=== PATIENT | female | born 1925 | race Caucasian/White ===

== ENCOUNTER 2016-05-11 14:40 | Inpatient (IN) | payer OTHER ==
[~2016-05-11] VITALS: Ht 162.6 cm; Wt 63.5 kg
[2016-05-11 14:40] VITALS: BP 148/78; PULSE 59; RESP 16; TEMP 98; O2SAT 96
[~2016-05-11 14:40] MED LIST: ALBU8.5H8 INH; ALPR0.2583 PO; BENA20TA2 PO; BUPR75TA8; FLUT16SP16 NS; IPRA4AER INH; ISOS30TA6 PO; LEVO75TA7 PO; NITR1PAT10 SL; WARF4TAB2 PO
--- NOTE | 2016-05-11 14:40 | NUR ---
Patient to ER bed 2 to gown for evaluation. Side rails up. Report given to jessica mercado.
--- NOTE | 2016-05-11 14:45 | NUR ---
ER at bedside examining patient.
[2016-05-11 15:20] LABS: BASOPHILS # (AUTO) 0.1 K/uL (0.0-0.2); BASOPHILS % (AUTO) 0.8 % (0.0-2.0); EOSINOPHILS # (AUTO) 0.2 K/uL (0.0-0.4); EOSINOPHILS % (AUTO) 2.6 % (0.0-4.0); HEMATOCRIT 34.3 % (36-48); HEMOGLOBIN 11.4 g/dL (12.0-16.0); LYMPHOCYTES % (AUTO) 13.9 % (20.5-51.5); MEAN CORPUSCULAR HEMOGLOBIN 32 pg (27-31); MEAN CORPUSCULAR HGB CONC 33 % (32-36); MEAN CORPUSCULAR VOLUME 96 fL (79.0-98.0); MONOCYTES # (AUTO) 0.5 K/uL (0.0-1.0); MONOCYTES % (AUTO) 6.9 % (1.7-9.3); NEUTROPHILS # (AUTO) 5.4 K/uL (1.8-7.7); NEUTROPHILS % (AUTO) 75.8 % (40.0-70.0); PLATELET COUNT (AUTO) 171 K/uL (130-430); RED BLOOD CELL COUNT(AUTO) 3.55 MIL/uL (4.2-6.2); RED CELL DISTRIBUTION WIDTH 13.3 % (9.0-15.0); WHITE BLOOD COUNT (AUTO) 7.2 K/uL (4.8-10.8)
[2016-05-11 15:29] LABS: ANION GAP 6 (5-15); CALCIUM 8.7 mg/dL (8.4-11.0); CHLORIDE 110 mmol/L (98-107); CREATININE 1.61 mg/dL (0.55-1.30); GLUCOSE 122 mg/dL (70-99); POTASSIUM 4.7 mmol/L (3.5-5.1); SODIUM SERUM 143 mmol/L (136-145); UREA NITROGEN, BLOOD 27 mg/dL (8-21)
[2016-05-11 15:40] LABS: PROTHROMBIN TIME 45.9 SECS (9.5-12.5)
[2016-05-11 15:42] LABS: TOTAL BILIRUBIN 0.7 mg/dL (0.0-1.0)
[2016-05-11 15:43] LABS: ALANINE AMINOTRANSFERASE 19 U/L (12-78); ALBUMIN 3.1 g/dL (3.4-4.8); ASPARTATE AMINOTRANSFERASE 19 U/L (10-37); CHOLESTEROL 188 mg/dL (<200); HDL CHOLESTEROL 48 mg/dL (>55); LDL CHOLESTEROL 109 mg/dL (<100); TRIGLYCERIDES 168 mg/dL (30-150)
--- NOTE | 2016-05-11 15:50 | NUR ---
CELSA ROMAN-DTR AT [phone]
--- NOTE | 2016-05-11 16:10 | NUR ---
SPOKE WITH DTR CELSA, STATES TO CALL HER WHEN PT IS READY FOR DISCHARGE. INFORMED THAT SHE WILL STAY IN HOSPITAL FOR OBSERVATION.
--- NOTE | 2016-05-11 16:29 | NUR ---
PT ON BEDPAN, ATTEMPTING TO URINATE ON COMMAND. REFSUES IN AND OUT CATH. IV FLUIDS INFUSING WELL.
[2016-05-11] MEDS ORDERED: NACL 0.9% 1,000 ML IV ONE (16:37)
--- NOTE | 2016-05-11 16:42 | NUR ---
Patient poor historian, states she takes warfarin, unable to tell me what other medications she is taking or the doses. dr feldman aware
--- NOTE | 2016-05-11 17:15 | NUR ---
Admission Note Received patient from ER with diagnosis of SYNCOPE/ DEHYDRATION . Initial Plan of Care discussed-patient verbalized understanding. . Oriented to room, call light, pain management and safety.will continue to monitor
[2016-05-11 17:37] VITALS: BP 160/80; PULSE 65; RESP 18; TEMP 97.3; O2SAT 97
--- NOTE | 2016-05-11 18:32 | NUR ---
ADMISSION PATIENT CAME FROM HOME, S/P FALL, PATIENT IS ALERT AND ORIENTED AND ABLE TO COMMUNICATE NEEDS TO STAFF BUT HAS MOMENTS OF FORGETFULNESS. PATIENT IS BEDSIDE AND IS EDUCATED NOT TO GET UP UNASSISTED, BED IS IN LOWEST POSITION, BED ALARM IS ON, FALL RISK BAND IS ON AND CALL LIGHT IS WITHIN REACH. DAUGHTER IS AT BEDSIDE AND DR RIGGINS CAME IN TO SEE THE PATIENT, A NEW ORDER TO STRAIGHT CATH WAS NOTED BUT PATIENT IS TRYING TO USE A BEDPAN RIGHT NOW. ADMISSION WAS COMPLETED AND BELONGING LIST WAS FINISHED. WILL GIVE REPORT TO NIGHT NURSE.
[2016-05-11] MEDS ORDERED: IPRATROPIUM/ALBUTEROL SULFATE 3 ML AMPUL.NEB INH PRN (18:45)
[2016-05-11 19:10] LABS: BILIRUBIN,URINE NEGATIVE (NEGATIVE); BLOOD, URINE 1+ (NEGATIVE); CLARITY/URINE CLEAR (CLEAR); COLOR,URINE AMBER (YELLOW); GLUCOSE,URINE TRACE (NEGATIVE); KETONES,URINE TRACE (NEGATIVE); LEUKOCYTE ESTERASE ,URINE NEGATIVE (NEGATIVE); NITRITE, URINE POSITIVE (NEGATIVE); PROTEIN URINE TRACE (NEGATIVE)
[2016-05-11 19:29] VITALS: BP 149/81; PULSE 71; RESP 16; TEMP 98.5; O2SAT 93
[2016-05-11 19:39] LABS: BACTERIA,URINE MANY /HPF (None Seen); MUCUS,URINE None Seen /LPF (None Seen)
--- NOTE | 2016-05-11 19:40 | NUR ---
initial nursing notes: Patient is awake. Patient has an IV access on the left AC. Patient has bruises on the left buttock, right arm and both legs. Encouraged patient to use call light when getting out of the bed. Patient demonstrated proper use of call light.
[2016-05-11] MEDS: ALPRAZolam 0.25 MG TABLET PO SCH (20:35)
--- NOTE | 2016-05-11 21:40 | NUR ---
nursing rounds: Patient used bedpan and voided tea-colored urine output.
[2016-05-11 22:49] VITALS: BP 149/81; PULSE 71
--- NOTE | 2016-05-11 23:40 | NUR ---
nursing rounds: Patient is asleep. Patient has no shortness of breath.
[2016-05-12 00:59] VITALS: BP 136/70; PULSE 60; RESP 18; TEMP 98; O2SAT 94
--- NOTE | 2016-05-12 00:59 | NUR ---
Consultation Paged Reason for consulation: Syncope Was consult called: Yes Person who was notified: Nicole Consulting Physician: Cirilo Asher Assistant Administrator Specialty: Cardio Assistant Administrator
--- NOTE | 2016-05-12 01:40 | NUR ---
nursing rounds: Patient calmly resting in bed. Patient has no respiratory distress.
--- NOTE | 2016-05-12 03:40 | NUR ---
nursing rounds: Patient is able to use bedside commode with assist.
[2016-05-12 05:14] VITALS: BP 146/84; PULSE 95; RESP 18; TEMP 98.6; O2SAT 95
--- NOTE | 2016-05-12 05:40 | NUR ---
nursing rounds: Patient calmly resting in bed. Call light within patient's reach.
[2016-05-12] MEDS: LEVOTHYROXINE SODIUM 0.075 MG TABLET PO SCH (06:15)
[2016-05-12 07:08] LABS: BASOPHILS # (AUTO) 0.1 K/uL (0.0-0.2); BASOPHILS % (AUTO) 1.2 % (0.0-2.0); EOSINOPHILS # (AUTO) 0.3 K/uL (0.0-0.4); EOSINOPHILS % (AUTO) 4.5 % (0.0-4.0); HEMATOCRIT 34.8 % (36-48); HEMOGLOBIN 11.9 g/dL (12.0-16.0); LYMPHOCYTES # (AUTO) 1.4 K/uL (1.0-5.5); LYMPHOCYTES % (AUTO) 24.9 % (20.5-51.5); MEAN CORPUSCULAR HEMOGLOBIN 33 pg (27-31); MEAN CORPUSCULAR HGB CONC 34 % (32-36); MEAN CORPUSCULAR VOLUME 96 fL (79.0-98.0); MONOCYTES # (AUTO) 0.6 K/uL (0.0-1.0); MONOCYTES % (AUTO) 10.7 % (1.7-9.3); NEUTROPHILS # (AUTO) 3.3 K/uL (1.8-7.7); NEUTROPHILS % (AUTO) 58.7 % (40.0-70.0); PLATELET COUNT (AUTO) 160 K/uL (130-430); RED BLOOD CELL COUNT(AUTO) 3.62 MIL/uL (4.2-6.2); RED CELL DISTRIBUTION WIDTH 13.4 % (9.0-15.0); WHITE BLOOD COUNT (AUTO) 5.7 K/uL (4.8-10.8)
--- NOTE | 2016-05-12 07:36 | NUR ---
Nutrition Update Grover Scale 18 noted. Pt admitted for syncope/dehydration. Diet: mechanical soft BMI: 24 kg/m2 RD to follow per nutrition care standards.
--- NOTE | 2016-05-12 07:46 | NUR ---
closing nursing notes: Patient is awake, alert and oriented X 4. Patient is in no acute respiratory distress. No episodes of fall and no injuries throughout the night guard. Provided nursing report to incoming morning shift nurse, FERNANDEZ Busby, at patient's bedside.
[2016-05-12 07:49] LABS: INR 4.3 (0.8-1.2); PROTHROMBIN TIME 49.1 SECS (9.5-12.5)
[2016-05-12 07:55] VITALS: BP 153/102; PULSE 71; RESP 18; TEMP 98.2; O2SAT 93
--- NOTE | 2016-05-12 07:55 | NUR ---
INITIAL ROUNDS Received pt AAOx4, anxious at times, no c/o light-headedness or dizziness, no c/o pain or discomfort. Plan of care for the day reviewed with pt-pt verbalized her understanding. Pain management, skin and safety discussed-teach back done. Side rails up x3, bed alarm on, room across from nursing station for safety. Contact phone number explained, Call light within reach.
[2016-05-12 08:11] LABS: ANION GAP 8 (5-15); CALCIUM 8.9 mg/dL (8.4-11.0); CHLORIDE 108 mmol/L (98-107); CREATININE 1.29 mg/dL (0.55-1.30); GLUCOSE 88 mg/dL (70-99); SODIUM SERUM 141 mmol/L (136-145); UREA NITROGEN, BLOOD 25 mg/dL (8-21)
[2016-05-12 08:25] LABS: TOTAL BILIRUBIN 0.8 mg/dL (0.0-1.0)
[2016-05-12 08:26] LABS: ALANINE AMINOTRANSFERASE 20 U/L (12-78); ALBUMIN 3.2 g/dL (3.4-4.8); ASPARTATE AMINOTRANSFERASE 23 U/L (10-37); TOTAL PROTEIN, SERUM 6.2 g/dL (6.4-8.3)
[2016-05-12] MEDS ORDERED: buPROPion HCL 75 MG TABLET PO SCH ×2 (09:00→21:00)
--- NOTE | 2016-05-12 09:12 | NUR ---
CALLED [facility], MEDICAL RECORD, RE: CTA CORNONARY, NO SUCH TEST WAS [place]E ONLY CTA OF CHEST. SPOKE TO DK
[2016-05-12] MEDS: ISOSORBIDE MONONITRATE 30 MG TAB.ER.24H PO SCH (09:38)
[2016-05-12] MEDS: BENAZEPRIL HCL 20 MG TABLET (LOTENSIN) PO SCH (09:39)
[2016-05-12] MEDS: ALPRAZolam 0.25 MG TABLET PO SCH ×3 (09:40→21:09)
--- NOTE | 2016-05-12 10:40 | NUR ---
ROUNDS Pt sitting up in bed visiting with her daughter. No s/s resp distress, no c/o dizziness or lightheadedness, no c/o pain or discomfort. Pt's daughter wanted me to inform doctor of medication Ranexa Er 1000 mg po BID that pt took yesterday that may have made pt faint-will inform MD. Needs met, call light within reach.
[2016-05-12] MEDS ORDERED: COMMUNICATION ORDER XX SCH (10:45)
[2016-05-12 12:33] VITALS: BP 139/78; PULSE 63; RESP 16; TEMP 97.3; O2SAT 96
--- NOTE | 2016-05-12 13:12 | NUR ---
ROUNDS Pt sitting up in bed eating her lunch, no c/o pain or discomfort, no c/o dizziness. Call light within reach.
[2016-05-12] MEDS ORDERED: cefTRIAXone 1 GM in D5W 50 ML IV ONE (14:15)
[2016-05-12] MEDS: CIPROFLOXACIN LACT 200 MG/D5W 100 ML IV SCH ×2 (16:31→21:09)
[2016-05-12 17:17] VITALS: BP 115/62; PULSE 67; RESP 16; TEMP 99.5; O2SAT 94
--- NOTE | 2016-05-12 18:08 | NUR ---
CLOSING ROUNDS Pt sitting up in bed eating dinner. No s/s resp distress, no c/o pain or discomfort, no c/o dizziness or lightheadedness. Pt tolerated antibiotics well. No c/o GI distress. Needs met, call light within reach.
--- NOTE | 2016-05-12 20:10 | NUR ---
Initial note A/O x 3, forgetful, no SOB, no chest pain, denied pain. Skin warm to touch, IV #20 at L AC. Patent and free of infection or infiltration. Bruise noted at L buttock and R arm, no skin breakdown. Clear lung sounds and active bowel sounds. Needed one person assistance for ambulation/transfer. High risk for fall, patient closed to nursing station, bed alarm on, bed at lowest position, call light within reach, will continue to monitor patient.
[2016-05-12 20:29] VITALS: BP 119/91; PULSE 76; RESP 18; TEMP 96.9; O2SAT 98
[2016-05-12] MEDS: LACTOBACILLUS RHAMNOSUS GG 1 CAP CAPSULE PO SCH (21:09)
--- NOTE | 2016-05-12 22:10 | NUR ---
Round A/O x 3, forgetful, no SOB, no chest pain, denied pain. Resting in bed. Skin warm to touch, IV #20 at L AC. Patent and free of infection or infiltration. Bruise noted at L buttock and R arm, no skin breakdown. Clear lung sounds and active bowel sounds. High risk for fall, patient closed to nursing station, bed alarm on, bed at lowest position, call light within reach, will continue to monitor patient.
[2016-05-13 00:20] VITALS: BP 121/64; PULSE 66; RESP 18; TEMP 96.5; O2SAT 95
--- NOTE | 2016-05-13 00:20 | NUR ---
Round A/O x 3, forgetful, no SOB, no chest pain, denied pain. Resting/sleeping in bed. Skin warm to touch, IV #20 at L AC. Patent and free of infection or infiltration. Bruise noted at L buttock and R arm, no skin breakdown. High risk for fall, patient closed to nursing station, bed alarm on, bed at lowest position, call light within reach, will continue to monitor patient.
--- NOTE | 2016-05-13 02:05 | NUR ---
Round A/O x 3, forgetful, no SOB, no chest pain, denied pain. Resting in bed. Skin warm to touch, IV #20 at L AC. Patent and free of infection or infiltration. High risk for fall, patient closed to nursing station, bed alarm on, bed at lowest position, call light within reach, will continue to monitor patient.
--- NOTE | 2016-05-13 03:40 | NUR ---
paged for Dr Du, dialed . s/w [facility].
[2016-05-13] MEDS ORDERED: NITROGLYCERIN 0.4 MG TAB.SUBL SL PRN (03:45)
--- NOTE | 2016-05-13 03:45 | NUR ---
Dr. Du called back and gave order for Nitrostat 0.4 mg SL Q5 min x 3 PRN for chest pain.
--- NOTE | 2016-05-13 04:20 | NUR ---
Round A/O x 3, forgetful, no SOB, was c/o chest pain, Nitrostat given SL. Patient stated feel better, no more pain. Resting in bed. Skin warm to touch, IV #20 at L AC. Patent and free of infection or infiltration. Assisted patient to BSC x 1 for urination, clear robyn urine noted. High risk for fall, patient closed to nursing station, bed alarm on, bed at lowest position, call light within reach, will continue to monitor patient.
[2016-05-13 04:39] VITALS: BP 120/50; PULSE 68; RESP 19; TEMP 97.7; O2SAT 94
[2016-05-13] MEDS: LEVOTHYROXINE SODIUM 0.075 MG TABLET PO SCH (06:08)
--- NOTE | 2016-05-13 06:20 | NUR ---
Closing note A/O x 3, forgetful, no SOB, no chest pain, denied pain. Skin warm to touch, IV #20 at L AC. Patent and free of infection or infiltration. Needed one person assisted for transfer and ambulation. High risk for fall, patient closed to nursing station, bed alarm on, bed at lowest position, call light within reach, will give report to incoming nurse.
[2016-05-13 07:41] LABS: INR 2.4 (0.8-1.2); PROTHROMBIN TIME 27.1 SECS (9.5-12.5)
[2016-05-13 08:00] VITALS: BP 126/75; PULSE 66; RESP 17; TEMP 98.5; O2SAT 97
--- NOTE | 2016-05-13 08:00 | NUR ---
INITIAL NOTES PT IN BED, AWAKE, ALERT AND ORIENTED. DENIES ANY PAIN OR DISCOMFORT.NO ACUTE DISTRESS NOTED. 0N ROOM AIR. DENIES ANY SHORTNESS OF BREATH. IVL. ENC. TO CALL FOR HELP AT ALL TIMES. ON BED ALARM. CALL LIGHT IN REACH. WILL MONITOR.
[2016-05-13] MEDS: BENAZEPRIL HCL 20 MG TABLET (LOTENSIN) PO SCH (08:43)
[2016-05-13] MEDS: ISOSORBIDE MONONITRATE 30 MG TAB.ER.24H PO SCH (08:43)
[2016-05-13] MEDS: LACTOBACILLUS RHAMNOSUS GG 1 CAP CAPSULE PO SCH (08:44)
[2016-05-13] MEDS: ALPRAZolam 0.25 MG TABLET PO SCH (08:44)
[2016-05-13] MEDS ORDERED: cefTRIAXone 1 GM in D5W 50 ML IV SCH (09:00)
--- NOTE | 2016-05-13 09:30 | NUR ---
walking with physical therapy at this time.
[2016-05-13] MEDS: CIPROFLOXACIN LACT 200 MG/D5W 100 ML IV SCH ×2 (10:00→11:02)
--- NOTE | 2016-05-13 10:30 | NUR ---
PT DRESSED UP AND WANTS TO GO HOME. PT REMOVED MONITOR AND DOES NOT WANT TO PUT IT BACK. DR. SULLIVAN WAS SEEN PT AND SAID TO PT THAT SHE CAN GO HOME. INFORMED PT TO WAIT FOR DR. RIGGINS AT THIS TIME. DOES NOT WANTS TO GO BACK TO BED AT THIS TIME. PT JUST WANTED TO SIT ON THE CHAIR. CALLED DAUGHTER AND SPOKE TO PT.
[2016-05-13 12:00] VITALS: BP 126/80; PULSE 95; RESP 18; TEMP 98.3; O2SAT 96
--- NOTE | 2016-05-13 12:00 | NUR ---
CALLED DR. RIGGINS THAT PT WANTS TO LEAVE AND SHE REFUSE THE CIPRO IV ABX. ROCEPHIN WAS GIVEN . DAUGHTER WILL COME AND WILL SUPERVISOR JEWEL[employer] DEPARTMENT PT. STATED TO PRINT LABS RESULT AND FOLLOW UP WITH HER PRIMARY CARE DOCTOR.
--- NOTE | 2016-05-13 12:30 | NUR ---
AMA DAUGHTER HERE AND UNABLE TO PERSUADE PT TO STAY. PT WANTS TO GO HOME AT THIS TIME. LABS RESULT AND IMAGING RESULTS PRINTED AND GIVEN TO PT AND FAMILY. INSTRUCTED PT TO FOLLOW UP WITH PRIMARY CARE DOCTOR AND URINE CULTURE STILL PENDING AT THIS TIME. AMA FORMED SIGNED BY PT.
[2016-05-13] MEDS ORDERED: WARFARIN SODIUM 2 MG TABLET PO SCH (18:00)
== END 2016-05-13 12:40 | disposition left against medical advice (07) | DRG 683 ==
LOC: SED 14:40 → STU 16:37
PROVIDERS: ADMIT Internal Medicine; ATTEND Internal Medicine
DX: N17.9 Acute kidney failure, unspecified (principal); N39.0 Urinary tract infection, site not specified; E86.0 Dehydration; I95.9 Hypotension, unspecified; E03.9 Hypothyroidism, unspecified; J44.9 Chronic obstructive pulmonary disease, unspecified; I25.10 Atherosclerotic heart disease of native coronary artery without angina pectoris; I10 Essential (primary) hypertension; F32.9 Major depressive disorder, single episode, unspecified; F41.9 Anxiety disorder, unspecified; M19.90 Unspecified osteoarthritis, unspecified site; R00.1 Bradycardia, unspecified; Z53.21 Procedure and treatment not carried out due to patient leaving prior to being seen by health care provider; T45.515A Adverse effect of anticoagulants, initial encounter; T46.3X5A Adverse effect of coronary vasodilators, initial encounter; Y92.89 Other specified places as the place of occurrence of the external cause; Z79.899 Other long term (current) drug therapy; Z90.49 Acquired absence of other specified parts of digestive tract; Z86.718 Personal history of other venous thrombosis and embolism
CPT/HCPCS: 36415; 71010; 71250-TC; 80053; 80061; 81000-TC; 83605; 83735-TC; 83880; 84443-TC; 84484; 85025; 85610-TC; 85730-TC; 87040-TC; 87086; 87186-TC; 93005; 94640; 97110-GP; 97116-GP; 97530-GP; 99285; J0696; J0744; J7030; J7050; J7060